=== PATIENT | female | born 1950 | race African-American/Black ===

== ENCOUNTER 2025-10-01 15:40 | Emergency (ER) | payer MEDICARE ==
[~2025-10-01] VITALS: Ht 157.5 cm; Wt 73.9 kg
[2025-10-01] MEDS: ASPIRIN EC 81 MG TABLET.DR PO ONE (16:27)
[2025-10-01] MEDS ORDERED: ACETAMINOPHEN ES 500 MG TABLET ONE (16:30)
[2025-10-01] MEDS: ACETAMINOPHEN ES 500 MG TABLET PO ONE (16:35)
[2025-10-01 16:39] LABS: PLATELET COUNT (AUTO) 210 K/uL (150-450); RED BLOOD CELL COUNT(AUTO) 4.17 MIL/uL (4.0-5.2); RED CELL DISTRIBUTION WIDTH 12.3 % (11.5-15.0); WHITE BLOOD COUNT (AUTO) 5.6 K/uL (4.3-11.0)
[2025-10-01 16:50] LABS: CALCIUM, SERUM 8.6 mg/dL (8.5-10.1); CREATININE 1.3 mg/dL (0.6-1.3); SODIUM SERUM 139 mmol/L (136-145); UREA NITROGEN, BLOOD 21 mg/dL (7-18)
[2025-10-01 17:09] LABS: INR 0.96 (0.91-1.10)
[2025-10-01] MEDS ORDERED: IBUP-1490 PO (19:10)
[2025-10-01 19:49] VITALS: BP 145/65; TEMP 98; O2SAT 100
== END 2025-10-01 19:49 | disposition home or self-care (01) ==
LOC: ER 15:43
DX: S70.01XA Contusion of right hip, initial encounter (principal); S80.01XA Contusion of right knee, initial encounter; S80.02XA Contusion of left knee, initial encounter; R07.89 Other chest pain; I10 Essential (primary) hypertension; I25.2 Old myocardial infarction; I25.10 Atherosclerotic heart disease of native coronary artery without angina pectoris; H91.90 Unspecified hearing loss, unspecified ear; Z95.0 Presence of cardiac pacemaker; W19.XXXA Unspecified fall, initial encounter; Y93.89 Activity, other specified; Y92.000 Kitchen of unspecified non-institutional (private) residence as the place of occurrence of the external cause; Y99.8 Other external cause status
CPT/HCPCS: 36415; 71045-TC; 72170-TC; 73564-TC; 80048-TC; 84484-TC; 85025-TC; 85730-TC